=== PATIENT | male | born 1975 | race Caucasian/White ===

== ENCOUNTER 2021-01-28 10:13 | Emergency (ER) | payer MEDICARE, MEDICAID ==
[~2021-01-28] VITALS: Ht 185.4 cm; Wt 73.0 kg
[~2021-01-28 10:13] MED LIST: BENZTROPINE MES1 MG PO; CLOZAPINE100 M1 PO; DEPAKOTE ER500 MG; DEPAKOTE PO; DESYREL PO; FISHOIL; FLOMAX0.4 MG PO; GIN-ZING100 MG PO; GLUCOPHAGE500 MG PO; HALDOL PO; IBUPROFEN 800800 M1 PO; JANUVIA50 MG PO; LEVOTHYROXIN0.075 MG PO; LISINOPRIL5 MG PO; METFORMIN; MIRALAX17 GM PO; NAPROSYN500 MG PO; NEURONTIN 300300 M1 PO; NEXIUM40 MG PO; OLIVE LEAF; OMEPRAZOLE; OMEPRAZOLE40 MG PO; OXYBUTYNIN 5 MG5 M2 PO; PAXIL20 MG PO; PHENERGAN 25 MG25 M1 PO; PREVACID30 M1 PO; PROAIR HFA8.5 GM IH; REGLAN 10 MG TA10 M1 PO; RISPERDAL; ROBAXIN500 MG PO; SIMVASTATIN20 MG PO; SYNTHROID; SYNTHROID50 MCG; TRICOR145 MG PO; TUMS DUAL ACTI1 EACH PO; ULTRAM 50MG TAB50 MG PO; WELLBUTRIN 100100 M1; ZANTAC; ZOCOR40 MG; ZOFRAN4 MG PO; [UNRECOGNIZED DRUG - OTHER]; [UNRECOGNIZED DRUG - OTHER]; [UNRECOGNIZED DRUG - OTHER]
[2021-01-28] MEDS ORDERED: TIZANIDINE HCL2 M1 PO (10:24)
[2021-01-28 10:44] LABS: ABSOLUTE BASOPHILS 0.1 thou/uL (0.0-0.2); ABSOLUTE EOSINOPHILS 0.1 thou/uL (0.0-0.7); ABSOLUTE LYMPHOCYTES 2.2 thou/uL (0.8-5.3); ABSOLUTE MONOCYTES 0.7 thou/uL (0.0-1.2); ABSOLUTE NEUTROPHILS 5.5 thou/uL (1.6-8.1); BASOPHILS 1.2 %; EOSINOPHILS 0.8 %; HEMATOCRIT 40.6 % (42.0-52.0); LYMPHOCYTES 26.2 %; MCH 31.8 pg (26.0-34.0); MCHC 34.6 g/dL (28.0-37.0); MONOCYTES 7.8 %; NUCLEATED RBCS 0 /100WBC; PLATELET COUNT* 345 thou/uL (150-400); RBC 4.41 mil/uL (4.50-6.00); RDW-CV 14.8 % (10.5-14.5); WBC 8.6 thou/uL (4.0-11.0)
[2021-01-28 10:49] LABS: URINE BILIRUBIN NEGATIVE (Negative); URINE BLOOD NEGATIVE (Negative); URINE CLARITY CLEAR; URINE COLOR YELLOW; URINE GLUCOSE-RANDOM NEGATIVE (Negative); URINE KETONES NEGATIVE (Negative); URINE LEUKOCYTES-REFLEX NEGATIVE (Negative); URINE NITRITE-REFLEX NEGATIVE (Negative); URINE PROTEIN NEGATIVE (Negative); URINE UROBILINOGEN 0.2 E.U./dl (0.2-1.0)
[2021-01-28 10:51] LABS: CALCIUM 8.6 mg/dL (8.5-10.1); CREATININE 1.4 mg/dL (0.6-1.3); POTASSIUM 3.6 mmol/L (3.5-5.1)
[2021-01-28 10:55] LABS: ALBUMIN 4.1 g/dL (3.4-5.0); TOTAL BILIRUBIN 0.6 mg/dL (<0.1-1.0); TOTAL PROTEIN 6.7 g/dL (6.4-8.2)
[2021-01-28] MEDS ORDERED: ONDANSETRON HCL4 M2 PO (12:49)
[2021-01-28 12:55] VITALS: BP 99/56
== END 2021-01-28 12:55 | disposition home or self-care (01) ==
LOC: M.ERS 10:13
PROVIDERS: Nurse Practitioner
DX: R10.32 Left lower quadrant pain (principal); R19.7 Diarrhea, unspecified; K59.00 Constipation, unspecified; R11.2 Nausea with vomiting, unspecified; E78.00 Pure hypercholesterolemia, unspecified; Z79.899 Other long term (current) drug therapy; Z88.8 Allergy status to other drugs, medicaments and biological substances; E11.9 Type 2 diabetes mellitus without complications

== ENCOUNTER 2021-07-23 20:25 | Emergency (ER) | payer MEDICARE, MEDICAID ==
[~2021-07-23] VITALS: Ht 185.4 cm; Wt 77.1 kg
[~2021-07-23 20:25] MED LIST changes: +ONDANSETRON HCL4 M2 PO; +TIZANIDINE HCL2 M1 PO
[2021-07-23 21:35] LABS: ABSOLUTE BASOPHILS 0.1 thou/uL (0.0-0.2); ABSOLUTE EOSINOPHILS 0.2 thou/uL (0.0-0.7); ABSOLUTE LYMPHOCYTES 2.8 thou/uL (0.8-5.3); ABSOLUTE MONOCYTES 0.9 thou/uL (0.0-1.2); ABSOLUTE NEUTROPHILS 8.8 thou/uL (1.6-8.1); BASOPHILS 0.8 %; EOSINOPHILS 1.7 %; HEMATOCRIT 43.5 % (42.0-52.0); HEMOGLOBIN 14.5 gm/dL (14.0-18.0); LYMPHOCYTES 21.6 %; MCH 31.1 pg (26.0-34.0); MCHC 33.3 g/dL (28.0-37.0); MCV 93.3 fL (80.0-100.0); MONOCYTES 6.7 %; MPV 8.1 fl. (7.2-11.1); NUCLEATED RBCS 0 /100WBC; PLATELET COUNT* 324 thou/uL (150-400); POLYS 69.2 %; RBC 4.66 mil/uL (4.50-6.00); WBC 12.7 thou/uL (4.0-11.0)
[2021-07-23 21:40] LABS: CALCIUM 8.7 mg/dL (8.5-10.1); CREATININE 1.2 mg/dL (0.6-1.3); POTASSIUM 3.4 mmol/L (3.5-5.1)
[2021-07-23 21:44] LABS: ALBUMIN 3.8 g/dL (3.4-5.0); TOTAL BILIRUBIN 0.3 mg/dL (<0.1-1.0); TOTAL PROTEIN 6.6 g/dL (6.4-8.2)
[2021-07-23 21:51] LABS: URINE BILIRUBIN NEGATIVE (Negative); URINE BLOOD NEGATIVE (Negative); URINE CLARITY CLEAR; URINE COLOR YELLOW; URINE GLUCOSE-RANDOM NEGATIVE (Negative); URINE KETONES NEGATIVE (Negative); URINE LEUKOCYTES-REFLEX NEGATIVE (Negative); URINE NITRITE-REFLEX NEGATIVE (Negative); URINE PROTEIN NEGATIVE (Negative); URINE UROBILINOGEN 0.2 E.U./dl (0.2-1.0)
[2021-07-24 00:59] VITALS: BP 112/68
--- NOTE | 2021-07-24 11:19 | EKG ---
[place] [address] ELECTROCARDIOGRAM REPORT Name: CARTER JEFF Room: [facility]#: [id number] Admission: 07/23/21 Attend Phys: Discharge: 07/24/21 Date of : 79 Date of Service: 07/23/212128 Report #: [id number] THIS REPORT FOR: //name// [facility] ED Test Date: 2021-07-23 Test Time: 21:29:25 Pat Name: CARTER JEFF Department: Room: Gender: Hotel Front Office Manager: ID : [id number] Requested By: Akanksha Ruby Order Number: [id number] MD: Carter Toribio Measurements Intervals [place] Rate: 91 P: 23 GA: 182 QRS: -45 QRSD: 100 T: 72 QT: 394 QTc: 485 Interpretive Statements Sinus rhythm Left anterior fascicular block Borderline prolonged QT interval Baseline wander in lead(s) V5 Compared to ECG 03/19/2017 20:32:30 Sinus tachycardia no longer present Electronically Signed On 07-24-2021 11:19:12 [employer] by aCrter Toribio [email or web address] <ELECTRONICALLY SIGNED> By: Carter Toribio MD, FAC 07/24/21 1119 28 28 Carter Toribio MD, [facility] /EPI
== END 2021-07-24 01:02 | disposition home or self-care (01) ==
LOC: M.ERS 20:25
PROVIDERS: Emergency Medicine
DX: T50.901A Poisoning by unspecified drugs, medicaments and biological substances, accidental (unintentional), initial encounter (principal); E11.9 Type 2 diabetes mellitus without complications; E78.00 Pure hypercholesterolemia, unspecified; F20.9 Schizophrenia, unspecified; F17.210 Nicotine dependence, cigarettes, uncomplicated; Z79.899 Other long term (current) drug therapy; Z91.02 Food additives allergy status; Z88.8 Allergy status to other drugs, medicaments and biological substances; Y92.89 Other specified places as the place of occurrence of the external cause

== ENCOUNTER → 2021-09-07 | Outpatient (CLI) | payer MEDICARE, MEDICAID ==
[2021-09-07 10:47] LABS: ABSOLUTE BASOPHILS 0.1 thou/uL (0.0-0.2); ABSOLUTE EOSINOPHILS 0.2 thou/uL (0.0-0.7); ABSOLUTE LYMPHOCYTES 2.1 thou/uL (0.8-5.3); ABSOLUTE MONOCYTES 0.6 thou/uL (0.0-1.2); ABSOLUTE NEUTROPHILS 8.1 thou/uL (1.6-8.1); BASOPHILS 1.1 %; EOSINOPHILS 2.1 %; HEMATOCRIT 45.6 % (42.0-52.0); HEMOGLOBIN 15.2 gm/dL (14.0-18.0); LYMPHOCYTES 18.7 %; MCH 31.3 pg (26.0-34.0); MCHC 33.3 g/dL (28.0-37.0); MCV 93.9 fL (80.0-100.0); MONOCYTES 5.2 %; MPV 8.3 fl. (7.2-11.1); NUCLEATED RBCS 0 /100WBC; PLATELET COUNT* 283 thou/uL (150-400); POLYS 72.9 %; RBC 4.86 mil/uL (4.50-6.00); RDW-CV 14.6 % (10.5-14.5); WBC 11.1 thou/uL (4.0-11.0)
== END ==
LOC: M.LAB 10:14
PROVIDERS: ATTEND Nurse Practitioner Psychiatric/Mental Health
DX: Z51.81 Encounter for therapeutic drug level monitoring (principal)